=== PATIENT | female | born 1995 | race Caucasian/White ===

== ENCOUNTER 2021-05-12 07:19 | Emergency (ER) | payer MEDICAID, SELFPAY ==
[2021-05-12 07:20] VITALS: BP 157/102; PULSE 94; RESP 20; TEMP 36.9; O2SAT 99; BMI 34.8
--- NOTE | 2021-05-12 07:41 | HMH.EDGENADL ---
ED Disposition Condition on Discharge: Good - Critical Care Critical Care Time: No <Chris Zeng - Last Filed: 05/12/21 09:21> Condition on Discharge: Good - Critical Care Critical Care Time: No <Tiesha Archer - Last Filed: 05/29/21 12:40> Clinical Impression: Cyclical vomiting Disposition: Home, Self-Care Instructions: DI for Nausea -- Adult Additional Instructions: Stop using Phenergan suppositories. Compazine suppositories as needed for nausea and vomiting. Pepcid as prescribed. Potassium as prescribed. Do not use marijuana. Follow-up with gastroenterology, Dr. Iyer, call for appointment. You are being provided with a list of physicians available for follow-up of your condition. Please call a physician on this list to arrange a follow-up appointment as soon as possible. Prescriptions: Prochlorperazine [Compazine 25mg Suppository] 25 mg RC TIDP PRN #10 supp.rect PRN Reason: Vomiting Transmission Status: Received by [facility] Potassium Chloride [K-Tab ER 20 mEq] 20 meq PO DAILY #7 tab Transmission Status: Received by [facility] Famotidine [Pepcid 20mg Tablet] 20 mg PO BID 5 Days #10 tab Transmission Status: Received by [facility] Referrals: Provider,MD Vicky [Primary Care Provider] - Korey Iyer MD [Staff Physician] - Attestation: On 05/12/21, the high probability of a clinically significant, sudden or life threatening deterioration of the following system(s) required my full and direct attention, intervention and personal management. The time I documented below is in addition to time spent performing reported procedures but includes the following listed in this critical care notation. Medical Decision Making - Lab Data Result diagrams: 05/12/21 07:44 05/12/21 07:44 - Reevaluation(s) Time: 09:19 <Chris Zeng - Last Filed: 05/12/21 09:21> - Medical Records Medical records reviewed: Yes: I reviewed the patient's medical records. - Yaakov Inquiry Pt receiving controlled substance: Yes (haldol for nausea) Yaakov was queried for this patient: No Risks and benefits of using a controlled substance: were discussed with pt by me - Lab Data Result diagrams: 05/12/21 07:44 05/12/21 07:44 <Tiesha Archer - Last Filed: 05/29/21 12:40> Vital Signs: 05/12/21 07:20 05/12/21 08:00 05/12/21 09:40 Temperature 98.4 F 98.1 F Temperature Source Oral Oral Pulse Rate 68 72 Pulse Rate [Left] 94 H Respiratory Rate 20 18 16 Blood Pressure 148/94 H 161/78 H Blood Pressure [Right Arm] 157/102 H Blood Pressure Mean [Right Arm] 120 Blood Pressure Source [Right Arm] Automatic Cuff Blood Pressure Position [Right Arm] Sitting 02 Sat by Pulse Oximetry 99 100 Oxygen Delivery Method Room Air Room Air - Lab Data Lab Results 05/12/21 07:44: WBC 13.7 H, RBC 4.78, Hgb 14.5, Hct 41.8, MCV 87.3, MCH 30.4, MCHC 34.8, RDW 14.6, Plt Count 330, MPV 8.6, Neut % (Auto) 80.8 H, Lymph % (Auto) 14.2, [place] % (Auto) 3.8, Eos % (Auto) 0.9, Baso % (Auto) 0.4, Neut # (Auto) 11.0 H, Lymph # (Auto) 1.9, [place] # (Auto) 0.5, Eos # (Auto) 0.1, Baso # (Auto) 0.1 05/12/21 07:44: Sodium 138, Potassium 3.1 L, Chloride 103, Carbon Dioxide 19 L, Anion Gap 19.1 H, BUN 8, Creatinine 0.70, Estimated Creat Clear 177, Estimated GFR 101, Est GFR ( Amer) 122, Glucose 107 H, Calcium 9.6, Total Bilirubin 0.9, AST 40 H, ALT 36, Alkaline Phosphatase 76, Total Protein 8.1, Albumin 5.0, Globulin 3.1, Albumin/Globulin Ratio 1.6 05/12/21 07:44: Serum HCG, Qual Negative 05/12/21 07:50: Lactate 1.0 05/12/21 08:15: Urine Color Yellow, Urine Appearance Clear, Urine pH 6.5, Ur Specific [place] 1.025, Urine Protein 1+, Urine Glucose (UA) Negative, Urine Ketones 3+, Urine Blood Negative, Urine Nitrate Negative, Urine Bilirubin 2+ A, Urine Urobilinogen 0.2, Ur Leukocyte Esterase Negative, Urine RBC None, Urine WBC 3-5, Ur Squamous Epith Cells 3-5, Urine Bacteria None 05/12
[2021-05-12 07:56] LABS: Basophils # 0.1 K/mm3 (0-0.2); Basophils % 0.4 % (0.1-2.0); Eosinophils # 0.1 K/mm3 (0.0-0.4); Eosinophils % 0.9 % (0.1-12.0); Hematocrit 41.8 % (37.0-47.0); Hemoglobin 14.5 g/dL (12.2-16.2); Lymphocytes # 1.9 K/mm3 (0.7-4.5); Lymphocytes % 14.2 % (10-50); Mean Corpuscular HGB Conc 34.8 g/dL (31.8-35.4); Mean Corpuscular Hemoglobin 30.4 pg (27.0-31.2); Mean Corpuscular Volume 87.3 fl (81-99); Mean Platelet Volume 8.6 fl (7.4-10.4); Monocytes # 0.5 K/mm3 (0.1-1.0); Monocytes % 3.8 % (1.7-9.3); Neutrophils % 80.8 % (37.0-80.0); Platelet Count 330 K/mm3 (142-424); Red Blood Count 4.78 M/mm3 (4.20-5.40); Red Cell Distribution Width 14.6 % (11.5-17.5); White Blood Count 13.7 K/mm3 (4.8-10.8)
[2021-05-12 07:57] LABS: Chloride 103 mmol/L (98-107); Sodium 138 mmol/L (136-145)
[2021-05-12 07:58] LABS: Potassium 3.1 mmoL/L (3.5-5.1)
[2021-05-12 08:00] VITALS: BP 148/94; PULSE 68; RESP 18; O2SAT 100
[2021-05-12 08:00] LABS: Alanine Aminotransferase 36 U/L (12-78); Alkaline Phosphatase 76 U/L (38-126); Anion Gap 19.1 mEq/L (5-15); Aspartate Amino Transferase 40 U/L (14-36); Bilirubin,Total 0.9 mg/dl (0.2-1.3); Blood Urea Nitrogen 8 mg/dl (7-17); Carbon Dioxide 19 mmol/L (22.0-30.0); Creatinine Clearance Estimated 177 mL/min (50-200); Estimated Glomerular Filt Rate 101 ml/min (>60); GFR (African American) 122 ML/MIN (>60)
[2021-05-12 08:01] LABS: Albumin/Globulin Ratio 1.6 (1.1-1.8); Calcium 9.6 mg/dl (8.4-10.2); Globulin 3.1 g/dL (1.3-3.2); Glucose 107 mg/dl (74-100); Total Protein,Serum 8.1 g/dl (6.3-8.2)
[2021-05-12 08:28] LABS: HCG Qualitative, Serum Negative (Negative)
[2021-05-12 08:33] LABS: Microscopic, Urine URINE MICROSCOPIC (MICROSCOPIC)
[2021-05-12 08:51] LABS: Amphetamine/Metha Screen,Urine Negative ng/ml (<1000); Appearance,Urine CLEAR (Clear); Bilirubin,Urine 2+ (Negative); Blood, Urine Negative (Negative); Color,Urine YELLOW (Yellow); Glucose,Urine (UA) Negative (Negative); Ketones,Urine 3+ (Negative); Leukocyte Esterase,Urine Negative (Negative); Nitrate,Urine Negative (Negative); PH,Urine 6.5 (5.0-8.5); Protein,Urine 1+ (Negative); Specific Gravity, Urine 1.025 (1.005-1.030); Urobilinogen,Urine 0.2 EU/dl (0.2)
[2021-05-12 08:52] LABS: Barbiturates Screen,Urine Negative ng/ml (<200)
[2021-05-12 08:53] LABS: Benzodiazepines Screen,Urine Negative ng/ml (<200); Cannabinoid Screen,Urine Positive ng/ml (<50)
[2021-05-12 08:54] LABS: Cocaine Screen,Urine Negative ng/ml (<300); Methadone Screen,Urine Negative ng/ml (<300)
[2021-05-12 08:55] LABS: Opiate Screen,Urine Negative ng/ml (<300)
[2021-05-12 08:56] LABS: Phencyclidine Screen,Urine Negative ng/ml (<25)
[2021-05-12 09:40] VITALS: BP 161/78; PULSE 72; RESP 16; TEMP 36.7; O2SAT 98
== END 2021-05-12 09:59 | disposition home or self-care (01) ==
PROVIDERS: Emergency Medicine; Emergency Provider Emergency Medicine
DX: R11.15 Cyclical vomiting syndrome unrelated to migraine (principal); F12.10 Cannabis abuse, uncomplicated; F17.210 Nicotine dependence, cigarettes, uncomplicated
CPT/HCPCS: 80053; 80305; 81001; 83605; 84703; 85025; 99282

== ENCOUNTER 2021-05-13 08:51 | Emergency (ER) | payer MEDICAID, SELFPAY ==
[2021-05-13 08:52] VITALS: BP 160/80; PULSE 109; RESP 18; TEMP 36.7; O2SAT 98; BMI 31.4
--- NOTE | 2021-05-13 08:54 | HMH.EDGENADL ---
ED Disposition Clinical Impression: Dehydration, Drug-induced nausea and vomiting Disposition: Home, Self-Care Condition on Discharge: Good Referrals: Provider,Referral, [Primary Care Provider] - 3 days Time of Disposition: 11:42 - Critical Care Critical Care Time: No Attestation: On , the high probability of a clinically significant, sudden or life threatening deterioration of the following system(s) required my full and direct attention, intervention and personal management. The time I documented below is in addition to time spent performing reported procedures but includes the following listed in this critical care notation. Medical Decision Making - Medical Records Medical records reviewed: Yes: I reviewed the patient's medical records. - Yaakov Inquiry Pt receiving controlled substance: No Vital Signs: 05/13/21 08:52 05/13/21 09:30 05/13/21 10:00 Temperature 98.0 F Temperature Source Oral Pulse Rate 102 H Pulse Rate [Right Radial] 109 H Respiratory Rate 18 20 Blood Pressure 133/91 H 126/91 H Blood Pressure [Right Arm] 160/80 H Blood Pressure Mean 104 105 Blood Pressure Mean [Right Arm] 106 Blood Pressure Source [Right Arm] Automatic Cuff Blood Pressure Position [Right Arm] Sitting 02 Sat by Pulse Oximetry 98 99 97 Oxygen Delivery Method Room Air Orders (Tests/Meds): ED MEDICATIONS Discontinued Medications Generic Name Dose Route Start Last Admin Trade Name Freq PRN Reason Stop Dose Admin Haloperidol Lactate 1 mg 05/13/21 09:05 05/13/21 09:57 Haloperidol Lactate 5 Mg/Ml Vial IV 05/13/21 09:06 1 mg ONCE ONE Administration Lactated Ringer's 500 mls @ 999 mls/hr 05/13/21 09:15 05/13/21 09:54 Lactated Ringer's 1000 Ml Bag IV 05/13/21 09:45 999 mls/hr .Q31M BRYANT Administration Ketorolac Tromethamine 15 mg 05/13/21 09:05 05/13/21 09:55 Ketorolac 30mg/Ml Vial IV 05/13/21 09:06 15 mg ONCE ONE Administration Medical Decision Narrative: 25yo F evaluated for nausea and vomiting. Patient appears acutely uncomfortable on initial evaluation. She tells me about her recent overnight admission in [facility]. Of note, she fails to mention she was evaluated this emergency department yesterday. She had an extensive work-up completed that was largely unremarkable. I have requested the CT scan from [place]. Given her recent laboratory evaluation and largely unremarkable physical exam today, will defer labs at this time. Patient will receive IV fluids along with antiemetics and pain medicine. Patient has had no episodes of vomiting during her near 3-hour observation the emergency department. Her symptoms were managed with IV Haldol and Toradol. She received IV fluids. She reports she is feeling better at this time and would like to go home. Patient is discharged home in stable condition. General Adult HPI - General Stated complaint: vomiting Time Seen by Provider: 05/13/21 08:54 Mode of Arrival: Ambulatory Source of Information: Patient - History of Present Illness HPI narrative: 25yo F presents to the emergency department secondary to nausea with vomiting, epigastric pain, diarrhea. Patient reports she was recently admitted at [facility] on 08 May and discharged on the . She is brought her paperwork with her. She states the medication she was prescribed, Phenergan suppositories, are not available anywhere locally. She states she continues to have symptoms. She reports feeling like she is dying. Patient reports she used to smoke a lot of marijuana but has not smoked in the past 6 days. She denies any fever. She denies seeing any blood in her emesis or stool. - Related Data Previous Rx's Medication Instructions Recorded Famotidine [Pepcid 20mg Tablet] 20 mg PO BID 5 Days #10 tab 05/12/21 Potassium Chloride [K-Tab ER 20 20 meq PO DAILY #7 tab 05/12/21 mEq] Prochlorperazine [Compazine 25mg 25 mg RC TIDP PRN #10 s
[2021-05-13 09:30] VITALS: BP 133/91; PULSE 102; RESP 20; O2SAT 99
[2021-05-13 10:00] VITALS: BP 126/91; O2SAT 97
[2021-05-13 11:50] VITALS: BP 131/71; PULSE 74; RESP 15; TEMP 36.7; O2SAT 98
== END 2021-05-13 12:00 | disposition home or self-care (01) ==
PROVIDERS: Emergency Provider Family Medicine
DX: R11.2 Nausea with vomiting, unspecified (principal); E86.0 Dehydration; F17.210 Nicotine dependence, cigarettes, uncomplicated; R10.13 Epigastric pain; F12.90 Cannabis use, unspecified, uncomplicated
CPT/HCPCS: 96365; 99282

== ENCOUNTER 2021-05-14 11:48 | Emergency (ER) | payer MEDICAID, SELFPAY ==
[2021-05-14 11:49] VITALS: BP 162/99; PULSE 79; RESP 16; TEMP 36.7; O2SAT 98; BMI 31.9
--- NOTE | 2021-05-14 11:53 | HMH.EDGENADL ---
ED Disposition Clinical Impression: Cannabinoid hyperemesis syndrome Disposition: Home, Self-Care Condition on Discharge: Good Referrals: Provider,Referral, [Referring] - 3 days Time of Disposition: 13:44 - Critical Care Critical Care Time: No Attestation: On 05/14/21, the high probability of a clinically significant, sudden or life threatening deterioration of the following system(s) required my full and direct attention, intervention and personal management. The time I documented below is in addition to time spent performing reported procedures but includes the following listed in this critical care notation. Medical Decision Making - Medical Records Medical records reviewed: Yes: I reviewed the patient's medical records. - Yaakov Inquiry Pt receiving controlled substance: No Vital Signs: 05/14/21 11:49 Temperature 98.1 F Temperature Source Oral Pulse Rate [Right] 79 Respiratory Rate 16 Blood Pressure [Right Arm] 162/99 H Blood Pressure Mean [Right Arm] 120 02 Sat by Pulse Oximetry 98 Oxygen Delivery Method Room Air Orders (Tests/Meds): ED MEDICATIONS Generic Name Dose Route Start Last Admin Trade Name Freq PRN Reason Stop Dose Admin Lactated Ringer's 1,000 mls @ 999 mls/hr 05/14/21 13:00 05/14/21 13:00 Lactated Ringer's 1000 Ml Bag IV 05/14/21 14:00 999 mls/hr .Q1H1M BRYANT Administration Discontinued Medications Generic Name Dose Route Start Last Admin Trade Name Freq PRN Reason Stop Dose Admin Haloperidol Lactate 1 mg 05/14/21 11:54 05/14/21 12:09 Haloperidol Lactate 5 Mg/Ml Vial IV 05/14/21 11:55 1 mg ONCE ONE Administration Lactated Ringer's 1,000 mls @ 999 mls/hr 05/14/21 12:00 05/14/21 12:09 Lactated Ringer's 1000 Ml Bag IV 05/14/21 13:00 999 mls/hr .Q1H1M BRYANT Administration Medical Decision Narrative: 25yo F evaluated for nausea vomiting. Patient objectively looks better today than she did yesterday. Will retreat the patient with IV fluids and Haldol as this worked well for her yesterday. Patient's urine on visual inspection is dark, but not cloudy. Did not send for sample as the patient has no urinary system complaints. Counseled the patient on staying well-hydrated, simply wetting her mouth is not effective. Patient voiced understanding. Patient will be discharged home upon completion of her IV fluids. General Adult HPI - General Stated complaint: vomiting Time Seen by Provider: 05/14/21 11:53 Mode of Arrival: Ambulatory - History of Present Illness HPI narrative: 25yo F returns to the emergency department for the third day in a row. Patient has the same complaint she has had previous days. Today she states she felt well when she woke up but then developed nausea and vomiting. She reports using her Phenergan suppository but vomited afterward and is actually concerned she threw up her suppository. She denies any pain, fever. She reports she has been dipping her tongue and a cup of Pedialyte to keep her mouth moist but not actually ingesting any fluid. - Related Data Previous Rx's Medication Instructions Recorded Famotidine [Pepcid 20mg Tablet] 20 mg PO BID 5 Days #10 tab 05/12/21 Potassium Chloride [K-Tab ER 20 20 meq PO DAILY #7 tab 05/12/21 mEq] Prochlorperazine [Compazine 25mg 25 mg RC TIDP PRN #10 supp.rect 05/12/21 Suppository] Allergies Allergy/AdvReac Type Severity Reaction Status Date / Time No Known Allergies Allergy Verified 08/06/18 19:18 [facility] History - Hepatitis A Screen Drug use history?: No Attestation statement:: This patient has been screened for Hepatitis A risk factors. I have reviewed the patient's past medical history: Yes Medical History: Denies:: Cancer, Diabetes Mellitus Type 1, Diabetes Mellitus Type 2, MRSA Comment: [facility]. Cannabinoid hyperemesis Amputation: No Fractures: No - Social History Smoking Status: Current every day smoker Tobacco Type: cigarettes Alcohol Intake: Wix
[2021-05-14 13:00] VITALS: BP 161/95; PULSE 81; O2SAT 97
--- NOTE | 2021-05-14 13:46 | PC.NURSE ---
pt up for discharge but ER physician wants iv fluids to finish prior to discharge
[2021-05-14 14:00] VITALS: BP 161/95; PULSE 81; RESP 16; TEMP 36.7; O2SAT 97
== END 2021-05-14 14:10 | disposition home or self-care (01) ==
PROVIDERS: Emergency Provider Family Medicine; PCP Physician Assistant
DX: R11.2 Nausea with vomiting, unspecified (principal); R03.0 Elevated blood-pressure reading, without diagnosis of hypertension
CPT/HCPCS: 96365; 96366; 96375; 99281

== ENCOUNTER 2021-11-25 16:43 | Emergency (ER) | payer MEDICAID, SELFPAY ==
[2021-11-25 17:00] VITALS: RESP 19; O2SAT 99; BMI 35.4
[2021-11-25 17:12] VITALS: BMI 35.4
[2021-11-25 17:23] LABS: Basophils # 0.1 K/mm3 (0-0.2); Basophils % 0.5 % (0.1-2.0); Eosinophils # 0.1 K/mm3 (0.0-0.4); Eosinophils % 0.3 % (0.1-12.0); Lymphocytes # 1.4 K/mm3 (0.7-4.5); Lymphocytes % 8.3 % (10-50); Mean Corpuscular HGB Conc 31.8 g/dL (31.8-35.4); Mean Corpuscular Hemoglobin 30.5 pg (27.0-31.2); Mean Corpuscular Volume 95.7 fl (81-99); Mean Platelet Volume 8.9 fl (7.4-10.4); Monocytes # 0.4 K/mm3 (0.1-1.0); Monocytes % 2.1 % (1.7-9.3); Neutrophils # 14.8 K/mm3 (1.8-7.8); Neutrophils % 88.8 % (37.0-80.0); Platelet Count 411 K/mm3 (142-424); Red Blood Count 4.91 M/mm3 (4.20-5.40); Red Cell Distribution Width 13.9 % (11.5-17.5); White Blood Count 16.6 K/mm3 (4.8-10.8)
[2021-11-25 17:26] LABS: Chloride 103 mmol/L (98-107); MANUAL DIFFERENTIAL MANUAL DIFFERENTIAL (MANUAL DIFF); Potassium 3.7 mmoL/L (3.5-5.1); Sodium 140 mmol/L (136-145)
[2021-11-25 17:28] LABS: Amylase 76 U/L (30-110); Blood Urea Nitrogen 7 mg/dl (7-17); Creatinine Clearance Estimated 202 mL/min (50-200); Estimated Glomerular Filt Rate 120 ml/min (>60); GFR (African American) 145 ML/MIN (>60)
[2021-11-25 17:29] LABS: Alanine Aminotransferase 59 U/L (12-78); Albumin Level 4.9 g/dl (3.5-5.0); Albumin/Globulin Ratio 1.4 (1.1-1.8); Alkaline Phosphatase 73 U/L (38-126); Anion Gap 19.7 mEq/L (5-15); Aspartate Amino Transferase 49 U/L (14-36); Bilirubin,Total 0.7 mg/dl (0.2-1.3); Calcium 9.6 mg/dl (8.4-10.2); Carbon Dioxide 21 mmol/L (22.0-30.0); Globulin 3.5 g/dL (1.3-3.2); Glucose 151 mg/dl (74-100); Lipase 58 U/L (23-300); Total Protein,Serum 8.4 g/dl (6.3-8.2)
[2021-11-25 17:32] LABS: Coronavirus 19, PCR Not Detected (NotDetected); Influenza A, PCR Not Detected (NotDetected); Influenza B, PCR Not Detected (NotDetected)
--- NOTE | 2021-11-25 17:43 | HMH.EDGENADL ---
ED Disposition Clinical Impression: Gastroenteritis UTI (urinary tract infection) Qualifiers: Urinary tract infection type: acute cystitis Hematuria presence: without hematuria Qualified Code(s): N30.00 - Acute cystitis without hematuria Disposition: Home, Self-Care Condition on Discharge: Good Instructions: DI for Diarrhea and Traveler's Diarrhea -- Adult, DI for Nausea -- Adult, DI for Urinary Tract Infection (UTI) Additional Instructions: Additional instructions for VOMITING/DIARRHEA: See your physician as soon as possible for further evaluation. Return immediately if severe abdominal pain, uncontrollable vomiting, shortness of breath, fever, vomiting of blood or abdominal distention. Additional instructions for URINARY TRACT INFECTION: Take antibiotic as prescribed. See your physician in 2-3 days for follow up and culture results. Return immediately if you have an uncontrollable fever greater than 102 degrees, severe back or abdominal pain, inability to urinate, or repetitive vomiting. Prescriptions: Prochlorperazine Maleate [Compazine 10mg tablet] 10 mg PO TIDP PRN #10 tab PRN Reason: Vomiting Transmission Status: [facility] Cefdinir [Omnicef 300mg Capsule] 300 mg PO BID #14 cap Transmission Status: [facility] Referrals: Saleem Kendrick MD [Primary Care Provider] - - Critical Care Critical Care Time: No Attestation: On 11/25/21, the high probability of a clinically significant, sudden or life threatening deterioration of the following system(s) required my full and direct attention, intervention and personal management. The time I documented below is in addition to time spent performing reported procedures but includes the following listed in this critical care notation. Medical Decision Making - Yaakov Inquiry Pt receiving controlled substance: No Vital Signs: 11/25/21 17:00 Respiratory Rate 19 02 Sat by Pulse Oximetry 99 Oxygen Delivery Method Room Air - Lab Data Lab Results 11/25/21 17:14: WBC 16.6 H, RBC 4.91, Hgb 15.0, Hct 47.0, MCV 95.7, MCH 30.5, MCHC 31.8, RDW 13.9, Plt Count 411, MPV 8.9, Neut % (Auto) 88.8 H, Lymph % (Auto) 8.3 L, [place] % (Auto) 2.1, Eos % (Auto) 0.3, Baso % (Auto) 0.5, Neut # (Auto) 14.8 H, Lymph # (Auto) 1.4, [place] # (Auto) 0.4, Eos # (Auto) 0.1, Baso # (Auto) 0.1, Total Counted 100, Neutrophils % (Manual) 91 H, Band Neutrophils % 5.0, Lymphocytes % (Manual) 3 L, Monocytes % (Manual) 1 L, Platelet Estimate Normal, RBC Morphology Not Reportable, Hypochromasia 1+ 11/25/21 17:14: Sodium 140, Potassium 3.7, Chloride 103, Carbon Dioxide 21 L, Anion Gap 19.7 H, BUN 7, Creatinine 0.60, Estimated Creat Clear 202, Estimated GFR 120, Est GFR ( Amer) 145, Glucose 151 H, Calcium 9.6, Total Bilirubin 0.7, AST 49 H, ALT 59, Alkaline Phosphatase 73, Total Protein 8.4 H, Albumin 4.9, Globulin 3.5 H, Albumin/Globulin Ratio 1.4, Amylase 76, Lipase 58 11/25/21 17:14: Serum HCG, Qual Negative 11/25/21 17:17: SARS-CoV-2 (PCR) Not detected, Influenza A Untype (PCR) Not detected, Influenza Type B (PCR) Not detected 11/25/21 18:04: Urine Color Yellow, Urine Appearance Cloudy, Urine pH 6.0, Ur Specific [place] >= 1.030, Urine Protein 2+, Urine Glucose (UA) Negative, Urine Ketones 2+, Urine Blood Trace-i, Urine Nitrate Negative, Urine Bilirubin 1+ A, Urine Urobilinogen 0.2, Ur Leukocyte Esterase Negative, Urine RBC 3-5, Urine WBC 20-50, Ur Squamous Epith Cells 5-10, Urine Bacteria 4+, Urine Mucus 1+ Result diagrams: 11/25/21 17:14 11/25/21 17:14 Orders (Tests/Meds): ED MEDICATIONS Generic Name Dose Route Start Last Admin Trade Name Freq PRN Reason Stop Dose Admin Ceftriaxone Sodium 1 gm/ 50 mls @ 100 mls/hr 11/25/21 19:00 11/25/21 19:05 Sodium Chloride IV 12/09/21 18:59 100 mls/hr Q24H BRYANT Administration Discontinued Medications Generic Name Dose Route Start Last Admin Trade Name Freq PRN Reason Stop Dose Admin Adin
--- NOTE | 2021-11-25 17:47 | CT_ITS ---
PROCEDURE INFORMATION: Exam: CT Abdomen And Pelvis With Contrast Exam date and time: 11/25/2021 5:47 PM Age: 26 years old Clinical indication: Vomiting; Abdominal pain; Generalized; Additional info: Abdo pain, vomiting TECHNIQUE: Imaging protocol: Computed tomography of the abdomen and pelvis with contrast. Radiation optimization: All CT scans at this facility use at least one of these dose optimization techniques: automated exposure control; mA and/or kV adjustment per patient size (includes targeted exams where dose is matched to clinical indication); or iterative reconstruction. Contrast material: ISOVUE; Contrast volume: 75 ml; Contrast route: IV; COMPARISON: ABDPELWO CT abdomen pelvis wo con 08/06/2018 7:55 PM FINDINGS: Lungs: No acute findings in the visualized lung bases. No consolidation.The liver is normal. Liver: Slight fatty change in the liver was better seen on the prior nonenhanced study. No mass. No hepatomegaly. Gallbladder and bile ducts: Distended gallbladder. No calcified stones. No biliary dilatation. Pancreas: The pancreas is normal. Spleen: The spleen is normal. Adrenal glands: There are two right adrenal nodules which are enlarged compared with 08/06/2018. The larger lesion of approximately 1.8 cm has indeterminate enhanced density of 73 HU on this study, but had low HU density of -1 on the previous exam from 08/06/2018, probably an enlarging benign adenoma. Another tiny nodule at the right lateral tip of the adrenal of 1 cm has indeterminate enhanced density of 52 HU, but also had a very low HU density of -14 on the prior exam, suggesting likely adenoma. Left adrenal appears normal. Kidneys and ureters: The kidneys are normal. The ureters are normal. Stomach and bowel: The colon is almost completely empty and contracted which likely accounts for thickened appearance, differential would be colitis. No acute findings in the small intestine. No dilated loops or mucosal thickening. Stomach is unremarkable. Appendix: No findings of appendicitis. Intraperitoneal space: There is no free intraperitoneal air. There is no significant free intraperitoneal fluid. Vasculature: The vasculature is normal. Lymph nodes: No significantly enlarged lymph nodes by short axis criteria. Urinary bladder: Urinary bladder is nearly empty and not well evaluated. No calcified stones. No wall thickening as visualized. Reproductive: The uterus is unremarkable for age. A large number of tiny subcapsular follicles in both ovaries series 3, image 100, which may be of no clinical significance but this can be seen with polycystic ovary syndrome. No enlarged cyst or mass. Bones/joints: There is no evidence of acute fracture. Soft tissues: There are no soft tissue masses or fluid collections. IMPRESSION: 1. The colon is almost entirely empty and contracted which likely accounts for slightly thickened appearance, differential would be colitis. 2. There is no evidence of intestinal perforation or obstruction. 3. Distended gallbladder, no calcified stones or biliary dilatation. 4. Two enlarging right adrenal nodules of 1.8 cm and 1 cm have indeterminate density measurements on today's exam, though these had very low density measurements on the prior scan from 2018 suggesting benign adenomas. 5. Multiple additional nonemergency and chronic findings as above. COMMENTS: Consistent with the [employer]'s Incidental Findings Committee white paper (J Am Kaykay Radiol 2017): Any incidental adrenal lesion less than or equal to 1 cm is likely benign. No follow-up imaging is recommended for these lesions per consensus recommendations based on imaging
[2021-11-25 18:09] LABS: Microscopic, Urine URINE MICROSCOPIC (MICROSCOPIC)
[2021-11-25 18:12] LABS: Appearance,Urine CLOUDY (Clear); Blood, Urine TRACE-I (Negative); Color,Urine YELLOW (Yellow); Glucose,Urine (UA) Negative (Negative); Ketones,Urine 2+ (Negative); Leukocyte Esterase,Urine Negative (Negative); Nitrate,Urine Negative (Negative); Protein,Urine 2+ (Negative); Specific Gravity, Urine >= 1.030 (1.005-1.030); Urobilinogen,Urine 0.2 EU/dl (0.2)
[2021-11-25 18:13] LABS: Lymphocytes % 3 % (10-50); Monocytes % 1 % (2-9); Neutrophils % 91 % (42-76); Total Cells Counted 100
[2021-11-25 18:14] LABS: Hypochromasia 1+; Platelet Estimate Normal
[2021-11-25 18:14] LABS: Bilirubin,Urine 1+ (Negative)
[2021-11-25 18:18] LABS: HCG Qualitative, Serum Negative (Negative)
[2021-11-25 18:46] LABS: WBC,Urine 20-50 #/hpf (0-3)
[2021-11-25 18:47] LABS: Bacteria,Urine 4+ /lpf; Mucus,Urine 1+ /lpf
--- NOTE | 2021-11-25 19:30 | PC.NURSE ---
Addendum entered by Hina Mancuso RN 11/25/21 19:31: was notified Original Note: pt reports she feels better and ready to go home . Pt denies any continued n/v.
[2021-11-25 19:38] VITALS: BP 124/78; PULSE 84; RESP 20; TEMP 36.8; O2SAT 96
== END 2021-11-25 19:47 | disposition home or self-care (01) ==
PROVIDERS: Emergency Provider Emergency Medicine; PCP Emergency Medicine
DX: N30.00 Acute cystitis without hematuria (principal); K52.9 Noninfective gastroenteritis and colitis, unspecified; F17.210 Nicotine dependence, cigarettes, uncomplicated
CPT/HCPCS: 74177; 80053; 81001; 82150; 83690; 84703; 85007; 85025; 87086; 96365; 96375; 99283; C9803; J0696; J2405; Q9967; U0003; U0005

== ENCOUNTER 2022-07-31 16:14 | Emergency (ER) | payer MEDICAID, SELFPAY ==
[2022-07-31 16:25] VITALS: BP 141/73; PULSE 101; RESP 18; TEMP 36.9; O2SAT 98; BMI 32.9
--- NOTE | 2022-07-31 16:50 | EXP.UTC ---
Discharge Plan Disposition Patient Disposition: Home, Self-Care Condition: Good Prescriptions Prescriptions: New methylprednisolone [Medrol (Ike)] 4 mg tablets,dose pack See Rx Instructions .Route .COMPLEX 6 Days Qty: 21 0RF Rx Instructions: taper pack; amoxicillin-pot clavulanate 875-125 mg Tablet 1 tab PO Q12H 7 Days Qty: 14 0RF No Action prochlorperazine 25 MG suppository 25 mg RC TIDP PRN (Reason: Vomiting) Qty: 10 0RF famotidine 20 MG tablet 20 mg PO BID 5 Days Qty: 10 0RF potassium chloride 20 MEQ tablet extended release 20 meq PO DAILY Qty: 7 0RF cefdinir 300 MG capsule 300 mg PO BID Qty: 14 0RF prochlorperazine maleate 10 MG tablet 10 mg PO TIDP PRN (Reason: Vomiting) Qty: 10 0RF Referrals Follow up/Referrals: Saleem Kendrick MD [Primary Care Provider] - See instructions Activity Restrictions/Add. Instructions Additional Instructions/Restrictions: *Monitor Temp, Over the counter Motrin or Tylenol as directed/as needed Tylenol every 4 hours and Motrin every 6 hours (as long as your family doctor has told you that you can take it) for fever or pain. and straight to ER if unable to lower temp less than 101.0 after medication given *Warm salt water gargles may help to soothe the throat *Throat Lozenges? *Warm fluids like tea with honey may help to soothe the throat? *Sleep elevated *Humidifier/Vaporizer Follow up IMMEDIATELY for new or worsening symptoms or no Noticeable improvement over the next 48-72 hours. 911 for difficulty breathing or swallowing You were tested for today for COVID19 your test result should be back in the next 24-48 hours, you may check your results on the [facility] My Health Portal Make sure to take your Vitamins Vit. C Vit D and Zinc if you can take them Clinical Impressions Clinical Impression: Sinusitis Stand Alone Forms Stand Alone Forms: Work/School Release Instructions Patient Instructions: DI for Sinusitis, Sinusitis Discharge ED Provider: Daphne Roberts [facility] HPI General Stated complaint: sore throat,cough,ongestion Mode of Arrival: Ambulatory Source of Information: Patient Limitations: No Limitations Time Seen by Provider: 07/31/22 16:50 Description of Symptoms (Recalled from Triage Doc. by RN): PATIENT C/O SINUS PRESSURE AND DARK MUCOUS X 3 DAYS HEENT Symptoms (Recalled from RN notes): Yes Resp Symptoms (Recalled from RN notes): No Skin Symptoms (Recalled from RN notes): No MS Symptoms (Recalled from RN notes): No Functional Status (Recalled from RN notes): WNL History of Present Illness Provider Complaint: Patient states that she has been having sinus pain and pressure along with cough and drainage in the back of her throat States that she feels like she has a bad sinus infection States that started last week but got worse over the last couple of days Related Data Previous Rx's Medication Instructions Recorded famotidine 20 mg tablet 20 mg PO BID 5 days #10 tabs 05/12/21 potassium chloride 20 mEq 20 meq PO DAILY #7 tabs 05/12/21 tablet,extended release prochlorperazine 25 mg rectal 25 mg RC TIDP PRN Vomiting ##10 05/12/21 suppository cefdinir 300 mg capsule 300 mg PO BID #14 caps 11/25/21 prochlorperazine maleate 10 mg 10 mg PO TIDP PRN Vomiting #10 tabs 11/25/21 tablet amoxicillin 875 mg-potassium 1 tab PO Q12H 7 days #14 tabs 07/31/22 clavulanate 125 mg tablet methylprednisolone 4 mg tablets in See Rx Instructions .Route 07/31/22 a dose pack (Medrol (Ike)) .COMPLEX 6 days #21 tabs Allergies Allergy/AdvReac Type Severity Reaction Status Date / Time No Known Allergies Allergy Verified 11/25/21 19:11 Worker's Comp Is this a Worker's Comp case?: No PFSH PFSH Medical History (Updated 07/31/22 @ 17:02 by Daphne Roberts APRN) Anxiety Depression History of gastroesophageal reflux (GERD) No significant past medical history Surgical History (Updated 07/31/22 @ 16:42
[2022-07-31 17:01] VITALS: BP 141/73; PULSE 101; RESP 18; TEMP 36.9; O2SAT 98
== END 2022-07-31 17:11 | disposition home or self-care (01) ==
PROVIDERS: Emergency Provider Nurse Practitioner; PCP Emergency Medicine
DX: J01.90 Acute sinusitis, unspecified (principal); Z20.822 Contact with and (suspected) exposure to COVID-19
CPT/HCPCS: 99212; C9803; G0463; U0003; U0005

== ENCOUNTER 2022-09-28 13:52 | Emergency (ER) | payer MEDICAID, SELFPAY ==
[2022-09-28 14:11] VITALS: BP 150/76; PULSE 84; RESP 19; TEMP 36.6; O2SAT 100; BMI 32.5
[2022-09-28 14:15] LABS: UTC Influenza A Antigen Negative (Negative)
[2022-09-28 14:16] LABS: UTC Influenza B Antigen Negative (Negative)
--- NOTE | 2022-09-28 14:18 | EXP.UTC ---
Discharge Plan Disposition Patient Disposition: Home, Self-Care Condition: Good Prescriptions Prescriptions: New azithromycin [Zithromax] 250 mg tablet 250 mg PO UD DOSE PK Qty: 6 0RF Rx Instructions: Take two (2) tablets today, then one (1) tablet days #2 thru #5 chlcndwtfxkjdxb-hzjpqmcop-CV [Bromfed DM] 2-30-10 mg/5 mL Syrup 5 ml PO Q6H PRN (Reason: Cough) Qty: 240 0RF methylprednisolone 4 mg Tablets,Dose Pack 4 mg PO DIRECTED Qty: 21 0RF No Action methylprednisolone [Medrol (Ike)] 4 mg tablets,dose pack See Rx Instructions .Route .COMPLEX 6 Days Qty: 21 0RF Rx Instructions: taper pack; amoxicillin-pot clavulanate 875-125 mg Tablet 1 tab PO Q12H 7 Days Qty: 14 0RF albuterol sulfate [Proventil HFA] 90 mcg/actuation HFA aerosol inhaler 1 - 2 inh inhalation Q6H PRN (Reason: shortness of breath or wheezing) Qty: 8.5 0RF prochlorperazine 25 MG suppository 25 mg RC TIDP PRN (Reason: Vomiting) Qty: 10 0RF famotidine 20 MG tablet 20 mg PO BID 5 Days Qty: 10 0RF potassium chloride 20 MEQ tablet extended release 20 meq PO DAILY Qty: 7 0RF cefdinir 300 MG capsule 300 mg PO BID Qty: 14 0RF prochlorperazine maleate 10 MG tablet 10 mg PO TIDP PRN (Reason: Vomiting) Qty: 10 0RF Referrals Follow up/Referrals: Saleem Kendrick MD [Primary Care Provider] - See instructions Activity Restrictions/Add. Instructions Additional Instructions/Restrictions: Drink plenty of fluids. Take tylenol or ibuprofen for pain or fever. Take the medications as directed. Follow up with your regular doctor. GO TO THE ER FOR ANY WORSENING SYMPTOMS Clinical Impressions Clinical Impression: Pharyngitis, Viral syndrome Stand Alone Forms Stand Alone Forms: Work/School Release Instructions Patient Instructions: DI for Pharyngitis/Tonsillopharyngitis -- Adult, DI for Influenza -- Adult Discharge ED Provider: Jorgito Carlisle [facility] General Stated complaint: body aches, congestion, stomach pain, diarrhea Mode of Arrival: Ambulatory Source of Information: Patient Limitations: No Limitations Time Seen by Provider: 09/28/22 14:17 Description of Symptoms (Recalled from Triage Doc. by RN): pt comes in with c/o body aches, chills, fever, fatigue, stuffy nose, ears feel stopped up. symptoms began last nigth HEENT Symptoms (Recalled from RN notes): Yes Resp Symptoms (Recalled from RN notes): Yes Skin Symptoms (Recalled from RN notes): No MS Symptoms (Recalled from RN notes): No Functional Status (Recalled from RN notes): n/a History of Present Illness Provider Complaint: She states that for the past 1 day she has had sore throat, chills, body aches and low grade fever. Related Data Previous Rx's Medication Instructions Recorded famotidine 20 mg tablet 20 mg PO BID 5 days #10 tabs 05/12/21 potassium chloride 20 mEq 20 meq PO DAILY #7 tabs 05/12/21 tablet,extended release prochlorperazine 25 mg rectal 25 mg RC TIDP PRN Vomiting ##10 05/12/21 suppository cefdinir 300 mg capsule 300 mg PO BID #14 caps 11/25/21 prochlorperazine maleate 10 mg 10 mg PO TIDP PRN Vomiting #10 tabs 11/25/21 tablet albuterol sulfate 90 mcg/actuation 1 - 2 inh inhalation Q6H PRN 07/31/22 aerosol inhaler (Proventil HFA) shortness of breath or wheezing #8.5 grams amoxicillin 875 mg-potassium 1 tab PO Q12H 7 days #14 tabs 07/31/22 clavulanate 125 mg tablet methylprednisolone 4 mg tablets in See Rx Instructions .Route 07/31/22 a dose pack (Medrol (Ike)) .COMPLEX 6 days #21 tabs azithromycin 250 mg tablet 250 mg PO UD DOSE PK #6 tabs 09/28/22 (Zithromax) ypodeugnepiputx-gojffapdyaapiag-JN 5 ml PO Q6H PRN Cough #240 mL 09/28/22 2 mg-30 mg-10 mg/5 mL oral syrup (Bromfed DM) methylprednisolone 4 mg tablets in 4 mg PO DIRECTED #21 tabs 09/28/22 a dose pack Allergies Allergy/AdvReac Type Severity Reaction Status Date / Time No Known Allergies Allergy Verified
[2022-09-28 15:00] VITALS: BP 150/76; PULSE 84; RESP 19; TEMP 36.6
[2022-09-28 15:15] LABS: Adenovirus,PCR Not Detected (NotDetected); Bordetella Pertussis Not Detected (NotDetected); Chlamydophila Pneumoniae, PCR Not Detected (NotDetected); Coronavirus 19, PCR Not Detected (NotDetected); Coronavirus 229E Not Detected (NotDetected); Coronavirus NL63 Not Detected (NotDetected); Coronavirus OC43 Not Detected (NotDetected); Coronovirus HKU1,PCR Not Detected (NotDetected); Human Metapneumovirus Not Detected (NotDetected); Influenza A, PCR Not Detected (NotDetected); Influenza AH1, 2009 Not Detected (NotDetected); Influenza AH1, PCR Not Detected (NotDetected); Influenza AH3,PCR Not Detected (NotDetected); Influenza B, PCR Not Detected (NotDetected); Mycoplasma Pneumoniae, PCR Not Detected (NotDetected); Parainfluenza 1, PCR Not Detected (NotDetected); Parainfluenza 2, PCR Not Detected (NotDetected); Parainfluenza 3, PCR Not Detected (NotDetected); Parainfluenza 4, PCR Not Detected (NotDetected); Respiratory Syncytial Virus Not Detected (NotDetected); Rhinovirus/Enterovirus Not Detected (NotDetected)
== END 2022-09-28 15:07 | disposition home or self-care (01) ==
PROVIDERS: Emergency Provider Nurse Practitioner Family; PCP Emergency Medicine
DX: J02.9 Acute pharyngitis, unspecified (principal); R50.9 Fever, unspecified; R06.02 Shortness of breath; R10.9 Unspecified abdominal pain; R19.7 Diarrhea, unspecified; R05.9 Cough, unspecified; Z20.822 Contact with and (suspected) exposure to COVID-19; M79.10 Myalgia, unspecified site; R11.10 Vomiting, unspecified; R53.82 Chronic fatigue, unspecified; K21.9 Gastro-esophageal reflux disease without esophagitis; F32.A Depression, unspecified; F41.9 Anxiety disorder, unspecified; F17.210 Nicotine dependence, cigarettes, uncomplicated; Z79.51 Long term (current) use of inhaled steroids; Z79.52 Long term (current) use of systemic steroids; Z79.899 Other long term (current) drug therapy
CPT/HCPCS: 87581; 87632; 87798; 87804; 99213; C9803; G0463; U0003; U0005

== ENCOUNTER → 2023-01-03 14:30 | Outpatient (CLI) | payer MEDICAID, SELFPAY ==
[2023-01-03 14:10] LABS: Adenovirus,PCR Not Detected (NotDetected); Bordetella Pertussis Not Detected (NotDetected); Chlamydophila Pneumoniae, PCR Not Detected (NotDetected); Coronavirus 19, PCR Not Detected (NotDetected); Coronavirus 229E Not Detected (NotDetected); Coronavirus NL63 Not Detected (NotDetected); Coronavirus OC43 Not Detected (NotDetected); Human Metapneumovirus Not Detected (NotDetected); Influenza A, PCR Not Detected (NotDetected); Influenza AH1, 2009 Not Detected (NotDetected); Influenza AH1, PCR Not Detected (NotDetected); Influenza AH3,PCR Not Detected (NotDetected); Influenza B, PCR Not Detected (NotDetected); Mycoplasma Pneumoniae, PCR Not Detected (NotDetected); Parainfluenza 1, PCR Not Detected (NotDetected); Parainfluenza 2, PCR Not Detected (NotDetected); Parainfluenza 3, PCR Not Detected (NotDetected); Parainfluenza 4, PCR Not Detected (NotDetected); Respiratory Syncytial Virus Not Detected (NotDetected)
[2023-01-03 17:56] LABS: Coronovirus HKU1,PCR Detected (NotDetected); Rhinovirus/Enterovirus Detected (NotDetected)
== END ==
PROVIDERS: PCP Nurse Practitioner Family; Visit Provider Nurse Practitioner Family
DX: R09.89 Other specified symptoms and signs involving the circulatory and respiratory systems (principal); R05.9 Cough, unspecified; R19.7 Diarrhea, unspecified; R11.0 Nausea; J02.9 Acute pharyngitis, unspecified; B97.29 Other coronavirus as the cause of diseases classified elsewhere; B34.8 Other viral infections of unspecified site
CPT/HCPCS: 87581; 87632; 87798; C9803; U0003; U0005

== ENCOUNTER 2023-01-08 10:20 | Emergency (ER) | payer MEDICAID, SELFPAY ==
[2023-01-08 10:25] VITALS: BP 129/64; PULSE 92; RESP 20; TEMP 37.1; O2SAT 97; BMI 34.3
--- NOTE | 2023-01-08 10:31 | EXP.UTC ---
Discharge Plan Disposition Patient Disposition: Home, Self-Care Condition: Good Prescriptions Prescriptions: New benzonatate [benzonatate] 100 mg capsule 100 mg PO TIDP PRN (Reason: Cough) Qty: 30 0RF amoxicillin-pot clavulanate 875-125 mg Tablet 1 tab PO Q12H Qty: 20 0RF methylprednisolone 4 mg Tablets,Dose Pack 4 mg PO DIRECTED Qty: 21 0RF No Action liznkfowmrzysnq-ulrupjhpa-PM [Bromfed DM] 2-30-10 mg/5 mL syrup 10 ml PO Q4-6H PRN (Reason: cough) Qty: 473 0RF fluticasone propionate [Flonase Allergy Relief] 50 mcg/actuation spray,suspension 1 spray intranasal DAILY Qty: 10 1RF Rx Instructions: administer into each nostril ondansetron 4 mg tablet,disintegrating 4 mg PO Q8H PRN Referrals Follow up/Referrals: Saleem Kendrick MD [Primary Care Provider] - See instructions Activity Restrictions/Add. Instructions Additional Instructions/Restrictions: Drink plenty of fluids. Take tylenol or ibuprofen for pain or fever. Take the medications as directed. Follow up with your regular doctor. GO TO THE ER FOR ANY WORSENING SYMPTOMS Don't start the oral steroids until tomorrow, since you had the shot here today. Clinical Impressions Clinical Impression: Bronchitis, Sinusitis, Acute viral syndrome Stand Alone Forms Stand Alone Forms: Work/School Release Instructions Patient Instructions: DI for Sinusitis, DI for Acute Bronchitis Discharge ED Provider: Jorgito Carlisle [facility] [place] General Stated complaint: cough so bad,lungs hurt, diarrhea Time Seen by Provider: 01/08/23 10:30 History of Present Illness Provider Complaint: She states that for the past 2 days she has had cough, sore throat, chills, body aches and low grade fever. Related Data Home Medications Medication Instructions Recorded Confirmed ondansetron 4 mg disintegrating 4 mg PO Q8H PRN 01/03/23 01/03/23 tablet Previous Rx's Medication Instructions Recorded nfqcaoritqdjmfx-mobkpnxlmhdxkup-MB 10 ml PO Q4-6H PRN cough #473 mL 01/03/23 2 mg-30 mg-10 mg/5 mL oral syrup (Bromfed DM) fluticasone propionate 50 1 spray intranasal DAILY #10 mL 01/03/23 mcg/actuation nasal spray,suspension (Flonase Allergy Relief) amoxicillin 875 mg-potassium 1 tab PO Q12H #20 tabs 01/08/23 clavulanate 125 mg tablet benzonatate 100 mg capsule 100 mg PO TIDP PRN Cough #30 caps 01/08/23 methylprednisolone 4 mg tablets in 4 mg PO DIRECTED #21 tabs 01/08/23 a dose pack Allergies Allergy/AdvReac Type Severity Reaction Status Date / Time No Known Allergies Allergy Verified 01/03/23 11:23 [facility] Disclaimer: The information contained in this section may have been updated after the patient was seen, as this information can be updated by other users. Medical History Anxiety Cannabinoid hyperemesis syndrome Cyclical vomiting Dehydration Depression Drug-induced nausea and vomiting Gastritis Gastroenteritis History of gastroesophageal reflux (GERD) No significant past medical history Pharyngitis Sinusitis UTI (urinary tract infection) Surgical History History of tympanostomy tube placement Social History Smoking Status: Current every day smoker tobacco type: cigarettes alcohol intake: current substance use type: marijuana current occupational status: other Travel in the last 8 weeks: None ROS Obtained: Yes All systems reviewed & no additional complaints except as documented Constitutional Constitutional: Reports chills and Reports fever(s) Eyes Eyes: Denies eye discharge ENT Ears, Nose, Mouth, and Throat: Reports as per HPI Cardiovascular Cardiovascular: Denies chest pain Respiratory Respiratory: Denies chest congestion and Reports cough Gastrointestinal Gastrointestingal: Reports nausea; Denies abdominal
--- NOTE | 2023-01-08 10:33 | XR_ITS ---
FINAL REPORT CLINICAL HISTORY: cough FINDINGS: Two views of the chest were obtained. The heart size and pulmonary vascularity are within normal limits. The mediastinum is normal. No acute pulmonary abnormality is identified. There is no pneumothorax. The bony thorax is intact. IMPRESSION: No active cardiopulmonary disease. Reviewed, Interpreted and Dictated by Carlton Davis III, MD Transcribed by Adela Acosta Authenticated and [facility]
[2023-01-08 10:41] LABS: UTC Strep Screen (Rapid) Negative (Negative)
[2023-01-08 11:15] VITALS: BP 129/64; PULSE 92; RESP 20; TEMP 37.1; O2SAT 97
== END 2023-01-08 11:34 | disposition home or self-care (01) ==
PROVIDERS: Emergency Provider Nurse Practitioner Family; PCP Emergency Medicine
DX: J40 Bronchitis, not specified as acute or chronic (principal); J32.9 Chronic sinusitis, unspecified; B34.9 Viral infection, unspecified
CPT/HCPCS: 71046; 87880; 96372; 99212; 99213; G0463

== ENCOUNTER 2023-04-11 13:01 | Emergency (ER) | payer MEDICAID, SELFPAY ==
--- NOTE | 2023-04-11 13:09 | EXP.UTC ---
Discharge Plan Disposition Patient Disposition: Home, Self-Care Condition: Good Prescriptions Prescriptions: New ibuprofen [IBU] 800 mg tablet 800 mg PO Q8HP PRN (Reason: Moderate Pain) Qty: 30 0RF No Action bswgyeotcpnlmrk-xpgqvzfms-DP [Bromfed DM] 2-30-10 mg/5 mL syrup 10 ml PO Q4-6H PRN (Reason: cough) Qty: 473 0RF fluticasone propionate [Flonase Allergy Relief] 50 mcg/actuation spray,suspension 1 spray intranasal DAILY Qty: 10 1RF Rx Instructions: administer into each nostril ondansetron 4 mg tablet,disintegrating 4 mg PO Q8H PRN benzonatate [benzonatate] 100 mg capsule 100 mg PO TIDP PRN (Reason: Cough) Qty: 30 0RF amoxicillin-pot clavulanate 875-125 mg Tablet 1 tab PO Q12H Qty: 20 0RF methylprednisolone 4 mg Tablets,Dose Pack 4 mg PO DIRECTED Qty: 21 0RF Referrals Follow up/Referrals: Saleem Kendrick MD [Primary Care Provider] - See instructions Activity Restrictions/Add. Instructions Additional Instructions/Restrictions: Drink plenty of fluids. Take the ibuprofen for pain. Follow up with your regular doctor. GO TO THE ER FOR ANY WORSENING SYMPTOMS Clinical Impressions Clinical Impression: Migraine, COVID-19 Stand Alone Forms Stand Alone Forms: Work/School Release Instructions Patient Instructions: Migraine -- Adult, DI for Migraine, Coronavirus Disease 2019, Preventing the Spread of Coronavirus Discharge Instructions Discharge ED Provider: Jorgito Carlisle [facility] General Stated complaint: Headache Time Seen by Provider: 04/11/23 13:09 History of Present Illness Provider Complaint: she states that she has had a migraine headache for the past 1 day. she has recently had covid-19, but she states those symptoms are getting better, but her headache is not. She denies shortness of breath. Related Data Home Medications Medication Instructions Recorded Confirmed ondansetron 4 mg disintegrating 4 mg PO Q8H PRN 01/03/23 01/03/23 tablet Previous Rx's Medication Instructions Recorded clanolfgzeaovgw-maxywmtvhojefgv-SD 10 ml PO Q4-6H PRN cough #473 mL 01/03/23 2 mg-30 mg-10 mg/5 mL oral syrup (Bromfed DM) fluticasone propionate 50 1 spray intranasal DAILY #10 mL 01/03/23 mcg/actuation nasal spray,suspension (Flonase Allergy Relief) amoxicillin 875 mg-potassium 1 tab PO Q12H #20 tabs 01/08/23 clavulanate 125 mg tablet benzonatate 100 mg capsule 100 mg PO TIDP PRN Cough #30 caps 01/08/23 methylprednisolone 4 mg tablets in 4 mg PO DIRECTED #21 tabs 01/08/23 a dose pack ibuprofen 800 mg tablet (IBU) 800 mg PO Q8HP PRN Moderate Pain 04/11/23 #30 tabs Allergies Allergy/AdvReac Type Severity Reaction Status Date / Time No Known Allergies Allergy Verified 04/11/23 13:14 [facility] Disclaimer: The information contained in this section may have been updated after the patient was seen, as this information can be updated by other users. Medical History Anxiety Cannabinoid hyperemesis syndrome Cyclical vomiting Dehydration Depression Drug-induced nausea and vomiting Gastritis Gastroenteritis History of gastroesophageal reflux (GERD) No significant past medical history Pharyngitis Sinusitis UTI (urinary tract infection) Surgical History History of tympanostomy tube placement Social History Smoking Status: Current every day smoker tobacco type: cigarettes alcohol intake: current substance use type: marijuana current occupational status: other Travel in the last 8 weeks: None ROS Obtained: Yes All systems reviewed & no additional complaints except as documented Constitutional Constitutional: Denies chills and Denies fever(s) Eyes Eyes: Denies eye discharge ENT Ears, Nose, Mouth, and Throat: Denies dizziness, Denies otalgia and Denies sore
[2023-04-11 13:11] VITALS: BP 151/89; PULSE 75; RESP 18; TEMP 36.9; O2SAT 98; BMI 34.3
[2023-04-11 14:10] VITALS: BP 151/89; PULSE 75; RESP 18; TEMP 36.9
== END 2023-04-11 14:11 | disposition home or self-care (01) ==
PROVIDERS: Emergency Provider Nurse Practitioner Family; PCP Emergency Medicine
DX: U07.1 COVID-19 (principal); G43.909 Migraine, unspecified, not intractable, without status migrainosus; F17.210 Nicotine dependence, cigarettes, uncomplicated; F41.9 Anxiety disorder, unspecified; F32.9 Major depressive disorder, single episode, unspecified
CPT/HCPCS: 96372; 99212; 99214; G0463

== ENCOUNTER 2024-01-03 13:11 | Outpatient (CLI) | payer BC, SELFPAY ==
[2024-01-03 13:53] LABS: Basophils % 0.3 % (0.1-2.0); Eosinophils # 0.3 K/mm3 (0.0-0.4); Eosinophils % 2.8 % (0.1-12.0); Hematocrit 44.7 % (37.0-47.0); Hemoglobin 14.9 g/dL (12.2-16.2); Lymphocytes % 18.3 % (10-50); Mean Corpuscular HGB Conc 33.3 g/dL (31.8-35.4); Mean Corpuscular Hemoglobin 30.8 pg (27.0-31.2); Mean Corpuscular Volume 92.4 fl (81-99); Mean Platelet Volume 11.7 fl (7.4-10.4); Monocytes # 0.7 K/mm3 (0.1-1.0); Monocytes % 6.4 % (1.7-9.3); Neutrophils # 7.9 K/mm3 (1.8-7.8); Neutrophils % 72.1 % (37.0-80.0); Platelet Count 259 K/mm3 (142-424); Red Blood Count 4.84 M/mm3 (4.20-5.40); Red Cell Distribution Width 14.2 % (11.5-17.5)
[2024-01-03 14:32] LABS: Alanine Aminotransferase 42 U/L (12-78); Albumin Level 4.3 g/dl (3.5-5.0); Albumin/Globulin Ratio 1.6 (1.1-1.8); Alkaline Phosphatase 68 U/L (38-126); Anion Gap 11.7 mEq/L (5-15); Aspartate Amino Transferase 38 U/L (14-36); Bilirubin,Total 0.6 mg/dl (0.2-1.3); Blood Urea Nitrogen 6 mg/dl (7-17); Calcium 9.5 mg/dl (8.4-10.2); Carbon Dioxide 25 mmol/L (22.0-30.0); Chloride 106 mmol/L (98-107); Chol/HDL Ratio 6.6 (1-3.5); Cholesterol 199 mg/dl (140-200); Estimated Glomerular Filt Rate 118 ml/min (>60); GFR (African American) 143 ML/MIN (>60); Globulin 2.7 g/dL (1.3-3.2); Glucose 78 mg/dl (74-100); HDL Cholesterol 30 mg/dl (40-60); Potassium 4.7 mmoL/L (3.5-5.1); Sodium 138 mmol/L (136-145); Triglycerides 227 mg/dl (30-150); VLDL Cholesterol 45 mg/dL (0-40)
[2024-01-03 14:43] LABS: Direct LDL Cholesterol 111.71 mg/dL (100-129)
[2024-01-03 14:50] LABS: Free T4 (Free Thyroxine) 1.23 ng/dl (0.78-2.19)
[2024-01-03 14:54] LABS: 25-OH Vitamin D, Total < 12.8 ng/mL (30-100)
[2024-01-03 15:01] LABS: Thyroid Stimulating Hormone 1.39 uIU/mL (0.465-4.68)
[2024-01-03 15:20] LABS: Vitamin B12 287 pg/mL (239-931)
[2024-01-03 16:41] LABS: Microscopic, Urine URINE MICROSCOPIC (MICROSCOPIC)
[2024-01-03 17:49] LABS: Appearance,Urine CLEAR (Clear); Bilirubin,Urine Negative (Negative); Blood, Urine Negative (Negative); Color,Urine YELLOW (Yellow); Glucose,Urine (UA) Negative (Negative); Ketones,Urine Negative (Negative); Leukocyte Esterase,Urine Negative (Negative); Nitrate,Urine Negative (Negative); Protein,Urine Negative (Negative); Specific Gravity, Urine >= 1.030 (1.005-1.030); Urobilinogen,Urine 0.2 EU/dl (0.2)
[2024-01-03 17:58] LABS: Hemoglobin A1C 5.4 % (4.0-6.0)
[2024-01-03 18:17] LABS: Amorphous Sediment,Urine 4+ /lpf; Bacteria,Urine Trace /lpf
== END 2024-01-03 23:59 ==
LOC: LAB.DROPOF 13:11
PROVIDERS: PCP Nurse Practitioner Family; Visit Provider Nurse Practitioner Family
DX: K21.9 Gastro-esophageal reflux disease without esophagitis (principal); K92.2 Gastrointestinal hemorrhage, unspecified; R53.83 Other fatigue; E55.9 Vitamin D deficiency, unspecified; E66.9 Obesity, unspecified; Z68.34 Body mass index [BMI] 34.0-34.9, adult; Z79.899 Other long term (current) drug therapy
CPT/HCPCS: 80053; 80061; 81001; 82306; 82607; 83036; 84439; 84443; 85025; 87086

== ENCOUNTER 2024-02-20 09:48 | Outpatient (CLI) | payer BC, SELFPAY ==
--- NOTE | 2024-02-20 09:49 | NM_ITS ---
FINAL REPORT TECHNIQUE: Millicuries of technetium 99m sulfur colloid was ingested with eggs. CLINICAL HISTORY: Evaluate gastric emptying 2/2 retained food on egd FINDINGS: GASTRIC EMPTYING SCAN Static images show normal emptying of the stomach into the small bowel. Based on the time activity curve, the estimated half-emptying time is 151 minutes. IMPRESSION: Abnormally long gastric emptying study. Reviewed, Interpreted and Dictated by Carlton Davis III, MD Transcribed by Adela Acosta Authenticated and [facility]
[2024-02-20] MEDS: TC99M SULF.COLLOID;1 DOSE (UP TO 20 MCI) IV (10:10)
== END 2024-02-20 23:59 ==
LOC: RAD 09:48
PROVIDERS: PCP Nurse Practitioner Family; Visit Provider Nurse Practitioner
DX: K31.84 Gastroparesis (principal)
CPT/HCPCS: 78264; A9541

== ENCOUNTER 2024-05-08 10:32 | Day surgery (SDC) | payer BC, SELFPAY ==
[2024-05-08 10:47] VITALS: BMI 32.4
[2024-05-08 10:56] LABS: Urine Pregnancy, HCG Qual. Negative (Negative)
[2024-05-08 10:59] VITALS: BP 131/72; PULSE 62; RESP 16; TEMP 36.3; O2SAT 97
[2024-05-08] MEDS: LACTATED RINGERS 1000ML 1,000 ML 25 ML IV (10:59)
--- NOTE | 2024-05-08 11:19 | ECG_ITS ---
APPROVED REPORT Exam: Resting ECG HR:54 bpm ECG Measurements Heart Rate 54 AXES DC 172 P 14 QRSd 96 QRS 56 QT 438 T 34 QTc 424 Conclusion SINUS BRADYCARDIA BORDERLINE ECG UNCONFIRMED REPORT Electronically signed by : Veto Chapman MD 05/09/2024 10:28:42
--- NOTE | 2024-05-08 11:22 | P.PNANES_ITS ---
[facility] Disclaimer: The information contained in this section may have been updated after the patient was seen, as this information can be updated by other users. Medical History Family history of throat cancer Family history of stomach cancer Melena Normal endoscopy Black tarry stools Establishing care with new doctor, encounter for COVID-19 Acute viral syndrome Sinusitis Bronchitis Sinus congestion Nausea Cough Viral syndrome Pharyngitis Sinusitis Depression Anxiety UTI (urinary tract infection) Gastroenteritis Cannabinoid hyperemesis syndrome Drug-induced nausea and vomiting Dehydration Cyclical vomiting Gastritis Surgical History History of colonoscopy History of tympanostomy tube placement Family History Other Cancer Coronary artery disease Diabetes FHx: mental illness Heart attack Hyperlipidemia Hypertension Social History Smoking Status: Current every day smoker tobacco type: cigarettes packs per day: 1 years smoked: 15 quit status: considering quitting second hand exposure: Yes alcohol intake: former year quit: 2023 counseling given: No substance use type: marijuana current occupational status: employed and other Travel in the last 8 weeks: None housing: house lives independently: Yes (spouse; ) marital status: number of children: 0 education level: high school service: No current occupation: [employer] caffeine: Yes physical activity: walking frequency: daily duration: 30-45 minutes/day do you feel safe at home: Yes victim of physical abuse: No victim of emotional abuse: No victim of sexual abuse: No [facility] Anesthesia Checklist Patient Identification Patient Identification: Arm Band Structural Data Admitted From: Home Planned Operative Procedure/s: EGD Consent for Planned Operative Procedure(s) Verified: Yes Verified Documents: Surgical Consent and History and Physical NPO Status Verified Time NPO: 00:00 Additional verifications Anesthesia Reactions: No Airway Assessment Mallampati Score:: Class II C-Spine Mobility Assessed: Yes TMJ Mobility Assessed: Yes Dentition: Good Dentition Neurological Assessment Level of Consciousness: Awake, Alert and Appropriate Anesthesia Plan Anesthesia Risk discussed: Yes Anesthesia Plan: Verified ASA Class: II Anesthesia Type: MAC Preoperative Comments Pre-Operative Comments: Pt states that she has occasional chest pain the comes when she is stressed at work. Pt has >4 METS activity tolerance. Will obtain EKG. Discussed following up with primary care provider and pt verbalized understanding
[2024-05-08 11:48] VITALS: O2SAT 97
[2024-05-08 12:00] VITALS: BP 101/62; PULSE 75; RESP 16; TEMP 36.2; O2SAT 94
--- NOTE | 2024-05-08 12:00 | HMH.SCOPE ---
Procedure: Date: 05/08/24 Patient Date of :: 1995 Procedure Performed:: EGD/Bx and dilation Indications:: Dysphagia, dyspepsia, history of melena Performing Provider:: Darren Hirsch MD Referring Provider:: Becca Hirsch APRN Sedation:: Propofol Procedure:: The gastroscope was gently passed through the incisoral orifice into the oral cavity and under direct visualization the esophagus was intubated. The endoscope was passed down the esophagus, through the stomach, and into the duodenum. Color, texture, mucosa, and anatomy of the esophagus, stomach, and duodenum were carefully examined with the scope. Findings:: Oropharynx: normal Esophagus: normal, empiric dilation performed with 58F bougie dilator EG Junction: intact at 40 cm Cardia: normal Fundus: normal Body: normal, no evidence of ulcer disease or blood loss, biopsied for h.pylori Antrum: normal Duodenal bulb: normal Duodenum (second and third portion): normal Impression:Symptomatic dysphagia treated with bougie dilation No evidence of GI bleed at this time Specimens:: Gastric Recommendations:: Symptomatic therapy as clinically indicated Complications:: None Estimated blood obtained (mL): 0 Colonoscopy Component Colonoscopy Component Was a colonoscopy performed during today's procedure?: No
[2024-05-08 12:10] VITALS: BP 98/67; PULSE 77; RESP 18; O2SAT 97
[2024-05-08 12:20] VITALS: BP 123/66; PULSE 75; RESP 18; O2SAT 97
[2024-05-08 12:30] VITALS: BP 104/69; PULSE 62; RESP 18; O2SAT 99
== END 2024-05-08 12:30 | disposition home or self-care (01) ==
PROVIDERS: PCP Nurse Practitioner Family; Visit Provider Internal Medicine Gastroenterology
PROC: 0DJ08ZZ Inspection of Upper Intestinal Tract, Via Natural or Artificial Opening Endoscopic (ICD-10-PCS; CPT 43235; principal; 2024-05-08 11:30)
DX: R13.10 Dysphagia, unspecified (principal); R10.13 Epigastric pain; Z87.19 Personal history of other diseases of the digestive system
CPT/HCPCS: 43248; 43239; 81025; 93005; J7120

== ENCOUNTER 2024-08-07 16:52 | Outpatient (CLI) | payer BC, SELFPAY ==
[2024-08-07 16:35] LABS: Adenovirus,PCR Not Detected (NotDetected); Bordetella Pertussis Not Detected (NotDetected); Chlamydophila Pneumoniae, PCR Not Detected (NotDetected); Coronavirus 19, PCR Not Detected (NotDetected); Coronavirus 229E Not Detected (NotDetected); Coronavirus NL63 Not Detected (NotDetected); Coronavirus OC43 Not Detected (NotDetected); Coronovirus HKU1,PCR Not Detected (NotDetected); Human Metapneumovirus Not Detected (NotDetected); Influenza A, PCR Not Detected (NotDetected); Influenza AH1, 2009 Not Detected (NotDetected); Influenza AH1, PCR Not Detected (NotDetected); Influenza AH3,PCR Not Detected (NotDetected); Influenza B, PCR Not Detected (NotDetected); Mycoplasma Pneumoniae, PCR Not Detected (NotDetected); Parainfluenza 1, PCR Not Detected (NotDetected); Parainfluenza 2, PCR Not Detected (NotDetected); Parainfluenza 3, PCR Not Detected (NotDetected); Parainfluenza 4, PCR Not Detected (NotDetected); Respiratory Syncytial Virus Not Detected (NotDetected); Rhinovirus/Enterovirus Not Detected (NotDetected)
== END 2024-08-07 23:59 | disposition home or self-care (01) ==
LOC: LAB.DROPOF 16:52
PROVIDERS: PCP Nurse Practitioner Family; Visit Provider Nurse Practitioner Family
DX: J02.9 Acute pharyngitis, unspecified (principal); R53.83 Other fatigue; R05.9 Cough, unspecified; Z72.0 Tobacco use
CPT/HCPCS: 87070; 87265; 87486; 87581; 87632; 87635